=== PATIENT | female | born 1990 | race Caucasian/White ===

== ENCOUNTER 2021-05-01 16:37 | Emergency (ER) | payer OTHER ==
[~2021-05-01] VITALS: Ht 152.4 cm; Wt 56.0 kg
[2021-05-01 17:01] VITALS: BP 122/83
== END 2021-05-01 18:51 | disposition home or self-care (01) ==
LOC: ED 17:00
DX: Z20.822 Contact with and (suspected) exposure to COVID-19 (principal)
CPT/HCPCS: 99283; U0003; U0005